=== PATIENT | male | born 1965 | race Caucasian/White ===

== ENCOUNTER 2021-10-03 10:06 | Emergency (ER) | payer BC ==
[2021-10-03] MEDS ORDERED: KETOROLAC 15 MG/ML VIAL ONE (11:53)
[2021-10-03] MEDS ORDERED: iohexoL-300 100 ML VIAL ONE (14:40)
--- NOTE | 2021-10-03 15:16 | ED Physician Documentation ---
PD HPI ABD PAIN - Stated complaint Stated Complaint: ABD PX - Chief complaint Chief Complaint: Abd Pain - History obtained from History obtained from: Patient - History of Present Illness Timing - onset: Enter time (0800), Today Timing - duration: Hours Timing - details: Abrupt onset, Still present Quality: Cramping, Sharp, Pain Location: RUQ, Epigastric Radiation: Chest Improved by: Laying still Worsened by: Moving, Breathing, Position, Palpation Associated symptoms: No: Vomiting, Diarrhea, Constipation, Dysuria, Hematuria Similar symptoms before: Has not had sx before Recently seen: Not recently seen - Additional information Additional information: Appears well 56-year-old male reports that he got up to go to the bathroom this morning and felt a twinge of pain in his abdomen and when he got into the shower he had more pain he got out he had severe pain and he felt that he should come in to be seen. He did not have nausea or vomiting associated with this but any movement causes increased pain. The patient note that he usually has some heart burn and this has been investigated and he has been on treatment. [facility]. Review of Systems Constitutional: denies: Fever Nose: denies: Congestion Throat: denies: Sore throat Cardiac: denies: Chest pain / pressure, Palpitations Respiratory: denies: Dyspnea, Cough GI: reports: Abdominal Pain. denies: Nausea, Vomiting, Constipation, Diarrhea : denies: Dysuria, Frequency Skin: denies: Rash Musculoskeletal: denies: Neck pain, Back pain, Extremity pain Neurologic: denies: Generalized weakness, Focal weakness, Numbness, Difficulty speaking, Headache, Head injury, LOC PD PAST MEDICAL HISTORY - Present Medications Home Medications: Ambulatory Orders Medication Instructions Recorded Confirmed Losartan [Cozaar] 50 mg PO DAILY 10/03/21 10/03/21 Oxycodone HCl/Acetaminophen 1 - 2 each PO Q6H PRN #14 tablet 10/03/21 [Percocet 5-325 mg Tablet] amLODIPine [Norvasc] 5 mg PO DAILY 10/03/21 10/03/21 - Allergies Allergies/Adverse Reactions: Allergies Allergy/AdvReac Type Severity Reaction Status Date / Time No Known Drug Allergies Allergy Verified 10/03/21 10:28 PD ED PE NORMAL - Vitals Vital signs reviewed: Yes (hypertension ) - General General: Alert and oriented X 3, No acute distress, Well developed/nourished - HEENT HEENT: Atraumatic, PERRL, EOMI - Neck Neck: Supple, no meningeal sign, No bony TTP - Cardiac Cardiac: RRR, No murmur - Respiratory Respiratory: No respiratory distress, Clear bilaterally - Abdomen Abdomen: Soft, Other (marked tenderness generally and more focused on RUQ with arrest of inspiration. EPigastric tenderness is maximal. ) - Back Back: No CVA TTP, No spinal TTP - Derm Derm: Normal color, Warm and dry, No rash - Extremities Extremities: No deformity, No edema - Neuro Neuro: Alert and oriented X 3, aquaculture director 2-12 intact, No motor deficit, No sensory deficit, Normal speech Eye Opening: Spontaneous Motor: Obeys Commands Verbal: Oriented GCS Score: 15 - Psych Psych: Normal mood, Normal affect Results - Vitals Vitals: Vital Signs - 24 hr 10/03/21 10/03/21 10/03/21 10:25 16:31 18:00 Temperature 37 C Heart Rate 83 80 75 Respiratory 16 18 19 Rate Blood Pressure 165/91 H 139/81 H 132/76 H O2 Saturation 99 95 99 Oxygen O2 Source Room air - Labs Labs: down time labs: U/A: negative ER panel: euboxic ( all normal) CBC: WBC 7.8, Hgb 14.1 hct 39.9 plt 210K - Rads (name of study) CT ab pel with Radiology: Prelim report reviewed (Impression: 1. Solid and cystic enhancing mass in the right upper quadrant adjacent to or originating from the stomach measuring 7.6 cm this is highly suspicious for malignancy.Small enhancing focus in the inferior right lobe of the liver this is most likely a benign hemangioma), Final report received (But is not definitively characterized on this exam. Consider further evaluation with MRI of the liver or multi for multiphase liver CT.Gallbladder is not distended small gallstone.Small volume of ascites), Discussed with rads (preliminary report from radiologist ), EMP read indepedently, See rad report u/s ab Radiology: Prelim report reviewed (reviewed with tech mass is present gallbladder is contracted with stone. ), EMP read indepedently, See rad report Procedures - Bedside sono Bedside sono by EMP: With use of bedside ultrasound the right upper quadrant is imaged the gallbladder is present appears contracted there are other findings that I am unable to explain. PD MEDICAL DECISION MAKING - ED course Complexity details: reviewed results, re-evaluated patient, considered differential, d/w patient ED course: 56-year-old male with sudden onset of abdominal pain today has tenderness and he has on his CT scan a tumor anterior to his stomach that appears to be possibly communicating with the stomach or at least compressing the stomach. He has relief with use of Toradol. He still has some pain when he attempts to move. I contacted the on-call GI doctor for the patient Dr. Robert Ocampo at the [facility] and he has asked us to fax over the report from the CT scan when it is available and he will leave a note to Dr. Mendoza to call the patient tomorrow for an urgent follow-up. With plans to attempt endoscopic biopsy and if that fails to refer the patient for laparoscopy. Departure - Departure Disposition: 01 Home, Self Care Clinical Impression: Intra-abdominal tumor Condition: Stable Instructions: ED Tumor [facility] Follow-Up: MARISOL CROWELL MD [Primary Care Provider] - Leighton Mendoza MD [Physician No Access] - Prescriptions: Oxycodone HCl/Acetaminophen [Percocet 5-325 mg Tablet] 1 - 2 each PO Q6H PRN #14 tablet PRN Reason: pain Comments: Enrique, today we have found a mass in your abdomen that was unexpected. We are uncertain exactly what this mass is and the thought is its likely a tumor. I have talked to the on-call roving machine operator for Dr. Mendoza. He will have Dr. Mendoza call you tomorrow for an urgent follow-up. In the meantime I will provide some pain medication in the form of Percocet and this will be E scribed to Salvador Coyle in [place]. Discharge Date/Time: 10/03/21 18:22
[2021-10-03] MEDS ORDERED: iohexoL-300 100 ML VIAL IVP ONE (18:06)
[2021-10-03] MEDS ORDERED: oxyCODONE/ACET 5/325 Prepack 4 PO STA (18:11)
[2021-10-03 18:22] VITALS: BP 132/76
[2021-10-03 20:25] LABS: ALBUMIN 4.3 g/dL (3.2-5.5); ALBUMIN/GLOBULIN RATIO 1.7 (1.0-2.2); BILIRUBIN,TOTAL 0.8 mg/dL (0.2-1.0); CALCIUM 8.7 mg/dL (8.5-10.3); POTASSIUM 3.9 mmol/L (3.5-5.0); TOTAL PROTEIN 6.9 g/dL (6.7-8.2)
[2021-10-03 20:32] LABS: BASOPHILS % (AUTO) 0.4 %; EOSINOPHILS # (AUTO) 0.1 10^3/uL (0.0-0.7); EOSINOPHILS % (AUTO) 1.2 %; HCT - HEMATOCRIT 39.9 % (42.0-52.0); HGB - HEMOGLOBIN 14.1 g/dL (14.0-18.0); LYMPHOCYTES # (AUTO) 1.1 10^3/uL (1.5-3.5); LYMPHOCYTES % (AUTO) 14.5 %; MEAN CORPUSCULAR HEMOGLOBIN 31.5 pg (27.0-31.0); MEAN CORPUSCULAR HGB CONC 35.3 g/dL (32.0-36.0); MEAN CORPUSCULAR VOLUME 89.1 fL (80.0-94.0); MEAN PLATELET VOLUME 9.8 fL (7.4-11.4); MONOCYTES # (AUTO) 0.5 10^3/uL (0.0-1.0); MONOCYTES % (AUTO) 6.8 %; NEUTROPHILS # (AUTO) 5.9 10^3/uL (1.5-6.6); NEUTROPHILS % (AUTO) 76.3 %; PLT - PLATELET COUNT 210 10^3/uL (130-450); RED BLOOD COUNT 4.48 10^6/uL (4.70-6.10); RED CELL DISTRIBUTION WIDTH 12.3 % (12.0-15.0); WHITE BLOOD COUNT 7.8 x10^3/uL (4.8-10.8)
[2021-10-03 21:08] LABS: BILIRUBIN,URINE NEGATIVE (NEGATIVE); GLUCOSE, URINE (UA) NEGATIVE (NEGATIVE); KETONES,URINE (UA) NEGATIVE (NEGATIVE); LEUKOCYTE ESTERASE, URINE NEGATIVE (NEGATIVE); NITRITE,URINE NEGATIVE (NEGATIVE); OCCULT BLOOD,URINE NEGATIVE (NEGATIVE); PROTEIN,URINE NEGATIVE (NEGATIVE); UROBILINOGEN,URINE 0.2 (NORMAL) E.U./dL (NORMAL)
[2021-10-03 21:09] LABS: CLARITY,URINE CLEAR (CLEAR)
--- NOTE | 2021-10-04 09:06 | CT Report ---
PROCEDURE: ABD & PELVIS CT W/CONTRAST INDICATIONS: Epigastric pain/mass CONTRAST: Omni 300 100ml TECHNIQUE: After the administration of intravenous contrast, 5 mm thick sections acquired from the diaphragms to the symphysis. 5 mm thick coronal and sagittal reformats were acquired. For radiation dose reducti on, the following was used: automated exposure control, adjustment of mA and/or kV according to chandler ent size. COMPARISON: Abdominal ultrasound 10/03/2021. FINDINGS: Image quality: Excellent. ABDOMEN: Lung bases: Minimal bibasilar atelectasis. No pleural effusion. Heart size is normal. Solid organs: Liver and spleen are normal in size. Ill-defined enhancing focus in the inferior right lobe of the liver, (). Gallbladder is not distended. Small gallstone. Biliary system is non dil ated. Pancreas enhances normally. No adrenal nodules. Kidneys demonstrate normal size and enhancem ent, without hydronephrosis. Peritoneum and bowel: Irregular solid and cystic enhancing mass in the right upper quadrant measuring 7.6 x 7.2 cm, (3/27). This abuts or originates from the distal stomach. This extends to the anterior abdominal wall. No small bowel obstruction. A few colonic diverticuli. Small volume of ascites about adjacent to the liver and spleen. No pneumoperitoneum. Nodes and vessels: No retroperitoneal or mesenteric adenopathy by size criteria. Somewhat shotty anay earing mesenteric nodes. Aorta and inferior vena cava are normal in size. Miscellaneous: Small umbilical hernia. PELVIS: Genitourinary: Bladder wall thickness is normal. Prominent prostate gland. Miscellaneous: No adenopathy. Right inguinal hernia. There is trace fluid in the hernia sac. Bones: No suspicious bony lesions. No vertebral body compression fractures. IMPRESSION: 1. Solid and cystic enhancing mass in the right upper quadrant adjacent or originating from the stoma ch measuring 7.6 cm. This is highly suspicious for malignancy. 2. Small enhancing focus in the inferior right lobe of liver. This is most likely a benign hemangioma but is not definitively characterized on this exam. Consider further evaluation with MRI of the live r or multiphase liver CT. 3. Gallbladder is not distended. Small gallstone. 4. Small volume of ascites. Results were communicated to Dr. Logan at 10/03/2021 4:00 PM [facility]. Reviewed by: Leroy Rome MD on 10/03/2021 4:20 PM PST Approved by: Leroy Rome MD on 10/03/2021 4:20 PM PST Station ID: [id number]
--- NOTE | 2021-10-04 09:12 | Ultrasound Report ---
PROCEDURE: Abdomen INDICATIONS: Abdominal pain TECHNIQUE: Grayscale and Doppler ultrasound was performed. COMPARISON: None. FINDINGS: Liver: Liver has normal size. There is no mass or intrahepatic biliary ductal dilatation. Hepatic ech ogenicity is increased consistent with hepatic steatosis. Gallbladder: The gallbladder contains stones. Gallbladder wall measures 2.9 mm. Near the fundus there is a gallbladder polyp or adherent sludge measuring 4 mm. The common bile duct measures 4 mm. Biliary: No intrahepatic biliary ductal dilatation. The common bile duct measures 4 mm. Pancreas: The pancreas is not well seen. Kidneys: The right kidney has a normal size and appearance. Other: There is a possible mass in the central abdomen versus normal stomach or exophytic right hepat ic mass. This measures approximately 6 x 6.9 cm. IMPRESSION: 1. Cholelithiasis without evidence of cholecystitis. 2. Gallbladder sludge and gallbladder polyp measuring 4 mm. 3. Possible abdominal mass. Recommend CT of the abdomen. Note at the time of this dictation the CT yancey s already been performed and demonstrates a solid and cystic enhancing mass in the right upper quadra nt. Reviewed by: Jerry Duron on 10/03/2021 8:54 PM PST Approved by: Jerry Duron on 10/03/2021 8:54 PM PST Station ID: [id number]
== END 2021-10-03 18:22 | disposition home or self-care (01) ==
LOC: ED 10:06
DX: D49.89 Neoplasm of unspecified behavior of other specified sites (principal); K80.20 Calculus of gallbladder without cholecystitis without obstruction; K82.4 Cholesterolosis of gallbladder
CPT/HCPCS: 36415; 74177; 76705; 80053; 81003; 82550; 83690; 85025; 96374; 99284; Q9967; 81001; 87086

== ENCOUNTER 2022-02-28 10:36 | Outpatient (CLI) | payer BC ==
[2022-02-28 14:15] LABS: BASOPHILS % (AUTO) 0.6 %; EOSINOPHILS # (AUTO) 0.4 10^3/uL (0.0-0.7); EOSINOPHILS % (AUTO) 6.1 %; HGB - HEMOGLOBIN 12.4 g/dL (14.0-18.0); LYMPHOCYTES # (AUTO) 1.9 10^3/uL (1.5-3.5); LYMPHOCYTES % (AUTO) 27.4 %; MEAN CORPUSCULAR HEMOGLOBIN 32.3 pg (27.0-31.0); MEAN CORPUSCULAR HGB CONC 34.4 g/dL (32.0-36.0); MEAN CORPUSCULAR VOLUME 93.8 fL (80.0-94.0); MEAN PLATELET VOLUME 9.5 fL (7.4-11.4); MONOCYTES # (AUTO) 0.5 10^3/uL (0.0-1.0); MONOCYTES % (AUTO) 6.8 %; NEUTROPHILS # (AUTO) 4.1 10^3/uL (1.5-6.6); NEUTROPHILS % (AUTO) 58.8 %; PLT - PLATELET COUNT 210 10^3/uL (130-450); RED BLOOD COUNT 3.84 10^6/uL (4.70-6.10); RED CELL DISTRIBUTION WIDTH 13.4 % (12.0-15.0)
[2022-02-28 14:37] LABS: ALBUMIN 4.2 g/dL (3.2-5.5); ALBUMIN/GLOBULIN RATIO 1.7 (1.0-2.2); BILIRUBIN,TOTAL 0.7 mg/dL (0.2-1.0); CALCIUM 8.7 mg/dL (8.5-10.3); PHOSPHORUS 2.4 mg/dL (2.5-4.6); POTASSIUM 3.9 mmol/L (3.5-5.0); TOTAL PROTEIN 6.7 g/dL (6.7-8.2)
== END 2022-02-28 10:37 | disposition home or self-care (01) ==
LOC: LAB.S 10:36
PROVIDERS: ATTEND Internal Medicine Medical Oncology
DX: C49.A2 Gastrointestinal stromal tumor of stomach (principal)
CPT/HCPCS: 36415; 80053; 84100; 84443; 85025

== ENCOUNTER 2022-06-20 13:04 | Outpatient (CLI) | payer BC ==
[2022-06-20 14:45] LABS: BASOPHILS % (AUTO) 0.6 %; EOSINOPHILS # (AUTO) 0.5 10^3/uL (0.0-0.7); EOSINOPHILS % (AUTO) 7.3 %; HCT - HEMATOCRIT 36.5 % (42.0-52.0); HGB - HEMOGLOBIN 12.5 g/dL (14.0-18.0); LYMPHOCYTES # (AUTO) 1.7 10^3/uL (1.5-3.5); LYMPHOCYTES % (AUTO) 26.9 %; MEAN CORPUSCULAR HEMOGLOBIN 32.6 pg (27.0-31.0); MEAN CORPUSCULAR HGB CONC 34.2 g/dL (32.0-36.0); MEAN CORPUSCULAR VOLUME 95.1 fL (80.0-94.0); MONOCYTES # (AUTO) 0.5 10^3/uL (0.0-1.0); MONOCYTES % (AUTO) 7.8 %; NEUTROPHILS # (AUTO) 3.6 10^3/uL (1.5-6.6); NEUTROPHILS % (AUTO) 57.1 %; PLT - PLATELET COUNT 212 10^3/uL (130-450); RED BLOOD COUNT 3.84 10^6/uL (4.70-6.10); RED CELL DISTRIBUTION WIDTH 13.2 % (12.0-15.0); WHITE BLOOD COUNT 6.3 x10^3/uL (4.8-10.8)
[2022-06-20 15:14] LABS: ALBUMIN 4.3 g/dL (3.2-5.5); ALBUMIN/GLOBULIN RATIO 1.7 (1.0-2.2); BILIRUBIN,TOTAL 0.7 mg/dL (0.2-1.0); CREATININE 1.1 mg/dL (0.6-1.2); PHOSPHORUS 2.6 mg/dL (2.5-4.6); POTASSIUM 3.9 mmol/L (3.5-5.0); TOTAL PROTEIN 6.9 g/dL (6.7-8.2)
== END 2022-06-20 13:05 | disposition home or self-care (01) ==
LOC: LAB.S 13:04
PROVIDERS: ATTEND Physician Assistant
DX: C49.A2 Gastrointestinal stromal tumor of stomach (principal)
CPT/HCPCS: 36415; 80053; 84100; 84443; 85025

== ENCOUNTER 2023-09-18 07:30 | Outpatient (CLI) | payer BC ==
[2023-09-18 15:25] LABS: BASOPHILS # (AUTO) 0.1 10^3/uL (0.0-0.1); EOSINOPHILS # (AUTO) 0.3 10^3/uL (0.0-0.7); EOSINOPHILS % (AUTO) 4.7 %; HCT - HEMATOCRIT 40.1 % (42.0-52.0); HGB - HEMOGLOBIN 13.6 g/dL (14.0-18.0); LYMPHOCYTES # (AUTO) 1.7 10^3/uL (1.5-3.5); LYMPHOCYTES % (AUTO) 26.8 %; MEAN CORPUSCULAR HEMOGLOBIN 32.5 pg (27.0-31.0); MEAN CORPUSCULAR HGB CONC 33.9 g/dL (32.0-36.0); MEAN CORPUSCULAR VOLUME 95.9 fL (80.0-94.0); MEAN PLATELET VOLUME 10.5 fL (7.4-11.4); MONOCYTES # (AUTO) 0.6 10^3/uL (0.0-1.0); MONOCYTES % (AUTO) 9.1 %; NEUTROPHILS # (AUTO) 3.6 10^3/uL (1.5-6.6); NEUTROPHILS % (AUTO) 58.1 %; PLT - PLATELET COUNT 221 10^3/uL (130-450); RED BLOOD COUNT 4.18 10^6/uL (4.70-6.10); RED CELL DISTRIBUTION WIDTH 13.2 % (12.0-15.0); WHITE BLOOD COUNT 6.2 x10^3/uL (4.8-10.8)
[2023-09-18 15:52] LABS: ALBUMIN 4.3 g/dL (3.2-5.5); ALBUMIN/GLOBULIN RATIO 1.9 (1.0-2.2); BILIRUBIN,TOTAL 0.5 mg/dL (0.2-1.0); CREATININE 0.9 mg/dL (0.6-1.3); PHOSPHORUS 2.6 mg/dL (2.5-5.0); POTASSIUM 4.1 mmol/L (3.5-4.5); TOTAL PROTEIN 6.6 g/dL (6.4-8.9)
[2023-09-18 16:00] LABS: THYROID STIMULATING HORMONE 1.97 uIU/mL (0.34-5.60)
== END 2023-09-18 07:31 | disposition home or self-care (01) ==
LOC: LAB.S 07:30
PROVIDERS: ATTEND Internal Medicine Medical Oncology
DX: C49.A2 Gastrointestinal stromal tumor of stomach (principal)
CPT/HCPCS: 36415; 80053; 84100; 84443; 85025

== ENCOUNTER 2023-10-04 08:35 | Outpatient (CLI) | payer BC | END 2023-10-04 08:36 | disposition home or self-care (01) | LOC: LAB.S 08:35 | PROVIDERS: ATTEND Internal Medicine Medical Oncology | DX: C49.A2 Gastrointestinal stromal tumor of stomach (principal) | CPT/HCPCS: 36415; 82525; 82607; 82746; 83540; 84466 ==

== ENCOUNTER 2023-12-27 07:24 | Outpatient (CLI) | payer BC ==
[2023-12-27 15:35] LABS: CHOL/HDL RATIO 3.6 (<5.0); CHOLESTEROL 127 mg/dL; HDL CHOLESTEROL 35 mg/dL; LDL CHOLESTEROL,CALCULATED 68 mg/dL; LDL/HDL RATIO 1.9 (<3.6); TRIGLYCERIDES 120 mg/dL (48-352); VLDL CHOLESTEROL 24 mg/dL
[2023-12-28 05:13] LABS: HIV SCREEN 4TH GENERATION Non Reactive (Non Reactive)
== END 2023-12-27 07:25 | disposition home or self-care (01) ==
LOC: LAB.S 07:24
PROVIDERS: ATTEND Family Medicine
DX: I10 Essential (primary) hypertension (principal); Z12.5 Encounter for screening for malignant neoplasm of prostate; Z11.4 Encounter for screening for human immunodeficiency virus [HIV]; Z11.59 Encounter for screening for other viral diseases
CPT/HCPCS: 36415; 80061; 83721; 84153; 86803; 87389

== ENCOUNTER 2024-06-20 14:23 | Outpatient (CLI) | payer BC ==
[2024-06-20 19:49] LABS: BASOPHILS # (AUTO) 0.1 10^3/uL (0.0-0.1); BASOPHILS % (AUTO) 0.7 %; EOSINOPHILS # (AUTO) 0.2 10^3/uL (0.0-0.7); EOSINOPHILS % (AUTO) 2.9 %; HCT - HEMATOCRIT 41.7 % (42.0-52.0); HGB - HEMOGLOBIN 14.2 g/dL (14.0-18.0); LYMPHOCYTES # (AUTO) 1.8 10^3/uL (1.5-3.5); LYMPHOCYTES % (AUTO) 23.1 %; MEAN CORPUSCULAR HEMOGLOBIN 32.2 pg (27.0-31.0); MEAN CORPUSCULAR HGB CONC 34.1 g/dL (32.0-36.0); MEAN CORPUSCULAR VOLUME 94.6 fL (80.0-94.0); MEAN PLATELET VOLUME 10.5 fL (7.4-11.4); MONOCYTES # (AUTO) 0.6 10^3/uL (0.0-1.0); MONOCYTES % (AUTO) 7.4 %; PLT - PLATELET COUNT 221 10^3/uL (130-450); RED BLOOD COUNT 4.41 10^6/uL (4.70-6.10); RED CELL DISTRIBUTION WIDTH 13.2 % (12.0-15.0); WHITE BLOOD COUNT 7.7 x10^3/uL (4.8-10.8)
[2024-06-20 20:04] LABS: ALBUMIN 4.3 g/dL (3.2-5.5); ALBUMIN/GLOBULIN RATIO 2.2 (1.0-2.2); BILIRUBIN,TOTAL 0.5 mg/dL (0.2-1.0); CALCIUM 9.1 mg/dL (8.5-10.3); CREATININE 0.9 mg/dL (0.6-1.3); PHOSPHORUS 3.5 mg/dL (2.5-5.0); POTASSIUM 3.6 mmol/L (3.5-4.5); TOTAL PROTEIN 6.3 g/dL (6.4-8.9)
[2024-06-20 20:16] LABS: THYROID STIMULATING HORMONE 1.79 uIU/mL (0.34-5.60)
== END 2024-06-20 14:24 | disposition home or self-care (01) ==
LOC: LAB.S 14:23
PROVIDERS: ATTEND Internal Medicine Medical Oncology
DX: C49.A2 Gastrointestinal stromal tumor of stomach (principal)
CPT/HCPCS: 36415; 80053; 84100; 84443; 85025